=== PATIENT | female | born 1935 | race Two or more races ===

== ENCOUNTER 2020-06-20 12:35 | Inpatient (IN) | payer OTHER ==
[~2020-06-20] VITALS: Ht 162.6 cm; Wt 53.4 kg
[2020-06-20] MEDS ORDERED: MORPHINE SULFATE 4 MG/ML SYR/VIAL IV ONE (13:45)
[2020-06-20] MEDS ORDERED: ONDANSETRON HCL 4 MG/2 ML VIAL IV ONE (13:45)
[2020-06-20 14:12] LABS: Basophils # (auto) 0 10 ^3/uL (0-0.2); Basophils % (auto) 0.1 % (0.0-2.0); Eosinophils # (auto) 0.1 10 ^3/uL (0-0.8); Eosinophils % (auto) 0.4 % (0.0-7.0); Hematocrit 45.5 % (36.0-46.0); Hemoglobin 14.6 g/dL (12.2-16.2); Lymphocytes # (auto) 0.9 10 ^3/uL (0.4-5.4); Mean Corpuscular Hemoglobin 31.4 pg (28.0-32.0); Mean Corpuscular Hgb Conc. 32.1 g/dL (32.0-36.0); Mean Corpuscular Volume 97.6 fL (80.0-100.0); Monocytes # (auto) 0.7 10 ^3/uL (0-1.3); Monocytes % (auto) 5.8 % (0.0-12.0); Neutrophils # (auto) 10.6 10 ^3/uL (1.6-8.6); Neutrophils % (auto) 86.7 % (37.0-80.0); Platelet Count (auto) 234 10^3/uL (140-450); Red Blood Cells 4.66 10^6/uL (4.0-5.20); Red Cell Distribution Width 13.8 % (11.8-14.3); White Blood Cell 12.2 10^3/uL (4.4-10.8)
[2020-06-20] MEDS ORDERED: MORPHINE SULF INJ 2 MG/ML SYRINGE 1ML IV PRN ×2 (15:45)
[2020-06-20] MEDS ORDERED: ALUM & MAG HYDROX-SIMETH LIQ(MAALOX) 30 ML PO PRN (15:45)
[2020-06-20] MEDS ORDERED: NITROGLYCERIN 0.4 MG SL TAB SL PRN (15:45)
[2020-06-20] MEDS ORDERED: LORazepam 0.5 MG TAB PO PRN (15:45)
[2020-06-20] MEDS ORDERED: ONDANSETRON HCL 4 MG/2 ML VIAL IV PRN (15:45)
[2020-06-20] MEDS ORDERED: MET25T PO (16:14)
[2020-06-20] MEDS ORDERED: LEVO50TA7 PO (16:14)
[2020-06-20] MEDS ORDERED: LATA0.0019 EACHEYE (16:14)
[2020-06-20] MEDS ORDERED: FLU220IH INH (16:14)
[2020-06-20] MEDS ORDERED: SIMV-8 PO (16:14)
[2020-06-20] MEDS: SODIUM CHLORIDE 0.9% 1,000 ML IV SCH (16:16)
[2020-06-20 17:22] LABS: Urine Bacteria NONE SEEN /hpf (None Seen); Urine Blood Negative /uL (Negative); Urine Specific Gravity 1.015 (1.001-1.035); Urine WBC 5 /hpf (0 - 5)
[2020-06-20 18:10] VITALS: BP_SYST 138; BP_DIAS 50; BP_DIAS 80
[2020-06-20 20:00] VITALS: BP 118/66
[2020-06-20 20:14] LABS: Alanine Aminotransferase 33 U/L (13-56); Albumin 3.9 g/dL (3.4-5.0); Alkaline Phosphatase 78 U/L (45-117); Anion Gap 10 (5-15); Aspartate Aminotransferase 30 U/L (15-37); BUN/Creatinine Ratio 29.1; Bilirubin, Total 0.6 mg/dL (0.2-1.0); Blood Urea Nitrogen 23 mg/dL (7-18); Calcium 8.9 mg/dL (8.5-10.1); Carbon Dioxide 24 mmol/L (21-32); Chloride 109 mmol/L (98-107); GFR African American 89 mL/min; GFR Non-African American 74 mL/min; Glucose 111 mg/dL (74-106); Potassium 3.9 mmol/L (3.5-5.1); Sodium 143 mmol/L (136-145); Total Protein 7.5 g/dL (6.4-8.2)
[2020-06-20 22:00] VITALS: BP 118/66
[2020-06-20 22:09] LABS: Alcohol, Urine < 3.0 mg/dL (0-10); Amphetamine Screen, Urine NEGATIVE (NEGATIVE); Barbiturate Scree,Urine NEGATIVE (NEGATIVE); Benzodiazephine Screen, Urine NEGATIVE (NEGATIVE); Cannabinoid Screen, Urine NEGATIVE (NEGATIVE); Cocaine Screen, Urine NEGATIVE (NEGATIVE); Opiate Scree,Urine POSITIVE (NEGATIVE); Phencyclidine Screen, Urine NEGATIVE (NEGATIVE)
[2020-06-20 22:25] VITALS: BP 138/80
[2020-06-20] MEDS: LATANOPROST 0.005 % OPTH(EYE) SOL 2.5ML EACHEYE SCH (22:34)
[2020-06-20] MEDS: ATORVASTATIN 20 MG TAB PO SCH (22:35)
[2020-06-20] MEDS: METOPROLOL TARTRATE 25 MG TAB PO SCH (22:36)
[2020-06-20] MEDS: HYDROcodone-ACET 5/325MG TAB PO PRN (22:37)
[2020-06-20 23:22] LABS: INR 1.02 (0.9-1.15)
[2020-06-21] VITALS (12 sets, daily range): BP systolic 90–175; BP diastolic 45–86
[2020-06-21] MEDS: LEVOTHYROXINE SODIUM 50 MCG TAB PO SCH (06:19)
[2020-06-21] MEDS: BUDESONIDE (INHALATION) 0.5 MG/2 ML NEB NEB SCH ×2 (07:30→22:32)
[2020-06-21 08:24] LABS: Cholesterol 164 mg/dL (< 200)
[2020-06-21 08:28] LABS: HDL Cholesterol 81 mg/dL (40-59); LDL Cholesterol 86 mg/dL (< 100); Triglycerides 70 mg/dL (< 150)
[2020-06-21] MEDS: METOPROLOL TARTRATE 25 MG TAB PO SCH ×2 (10:00→22:00)
[2020-06-21] MEDS: SODIUM CHLORIDE 0.9% 1,000 ML IV SCH (10:30)
[2020-06-21] MEDS ORDERED: TETRACAINE 1% INJ 2 ML VIAL IJ ONE (11:33)
[2020-06-21] MEDS ORDERED: MIDAZOLAM HCL 1MG/1ML-2 ML VIAL ONE (11:38)
[2020-06-21] MEDS ORDERED: MORPHINE SULF(PF) 0.5MG/ML 10ML VIAL ONE (11:38)
[2020-06-21] MEDS ORDERED: PROPOFOL 10 MG/ML 20 ML IV ONE (11:38)
[2020-06-21] MEDS ORDERED: GLYCOPYRROLATE 0.2 MG/ML 1ML VIAL ONE (11:38)
[2020-06-21] MEDS ORDERED: ONDANSETRON HCL 4 MG/2 ML VIAL ONE (11:38)
[2020-06-21] MEDS ORDERED: ePHEDrine SULFATE 50 MG/ML AMP ONE (11:38)
[2020-06-21] MEDS ORDERED: fentaNYL CITRATE 100 MCG/2 ML VL ONE (11:38)
[2020-06-21] MEDS ORDERED: CLINDAMYCIN 600MG IV 50 ML IV ONE (11:49)
[2020-06-21] MEDS ORDERED: LACTATED RINGER'S 1,000 ML IV SCH (12:52)
[2020-06-21] MEDS ORDERED: ePHEDrine SULFATE 50 MG/ML AMP IV PRN (13:15)
[2020-06-21] MEDS ORDERED: ONDANSETRON HCL 4 MG/2 ML VIAL IV PRN ×2 (13:15→18:00)
[2020-06-21] MEDS ORDERED: NALBUPHINE HCL 10 MG/1ml INJECTION SUBCUT ONE (13:15)
[2020-06-21] MEDS ORDERED: ACCU-CHEK COMFORT CURVE STRIP VI ONE (13:15)
[2020-06-21] MEDS ORDERED: DexAMETHasone SOD PHOS 10MG/1ML VIAL INJ IV PRN (13:15)
[2020-06-21] MEDS ORDERED: NALOXONE HCL 0.4 MG/ML VIAL IV PRN (13:15)
[2020-06-21] MEDS: SODIUM CHLOR 0.9% PF (SALINE LOCK) 10ML VIAL/SYR IV SCH ×2 (18:22→22:09)
[2020-06-21] MEDS: CLINDAMYCIN 600MG IV 50 ML IV SCH ×2 (18:22→22:09)
[2020-06-21] MEDS: LATANOPROST 0.005 % OPTH(EYE) SOL 2.5ML EACHEYE SCH (22:09)
[2020-06-21] MEDS: ATORVASTATIN 20 MG TAB PO SCH (22:10)
[2020-06-22] VITALS (19 sets, daily range): BP systolic 90–121; BP diastolic 42–66
[2020-06-22 06:29] LABS: Basophils # (auto) 0 10 ^3/uL (0-0.2); Basophils % (auto) 0.2 % (0.0-2.0); Eosinophils # (auto) 0 10 ^3/uL (0-0.8); Eosinophils % (auto) 0.3 % (0.0-7.0); Hematocrit 36.7 % (36.0-46.0); Hemoglobin 12.2 g/dL (12.2-16.2); Lymphocytes # (auto) 0.7 10 ^3/uL (0.4-5.4); Mean Corpuscular Hemoglobin 32.3 pg (28.0-32.0); Mean Corpuscular Hgb Conc. 33.2 g/dL (32.0-36.0); Mean Corpuscular Volume 97.4 fL (80.0-100.0); Monocytes # (auto) 0.8 10 ^3/uL (0-1.3); Monocytes % (auto) 8.2 % (0.0-12.0); Neutrophils # (auto) 8.7 10 ^3/uL (1.6-8.6); Neutrophils % (auto) 84.3 % (37.0-80.0); Platelet Count (auto) 190 10^3/uL (140-450); Red Blood Cells 3.77 10^6/uL (4.0-5.20); Red Cell Distribution Width 13.5 % (11.8-14.3); White Blood Cell 10.3 10^3/uL (4.4-10.8)
[2020-06-22 06:43] LABS: Potassium 3.8 mmol/L (3.5-5.1)
[2020-06-22] MEDS: CLINDAMYCIN 600MG IV 50 ML IV SCH (06:47)
[2020-06-22] MEDS: SODIUM CHLOR 0.9% PF (SALINE LOCK) 10ML VIAL/SYR IV SCH ×3 (06:47→21:46)
[2020-06-22] MEDS: LEVOTHYROXINE SODIUM 50 MCG TAB PO SCH (06:47)
[2020-06-22] MEDS: SODIUM CHLORIDE 0.9% 1,000 ML IV SCH ×2 (06:58→19:53)
[2020-06-22] MEDS: ACETAMINOPHEN 325 MG TAB PO PRN (07:01)
[2020-06-22] MEDS: BUDESONIDE (INHALATION) 0.5 MG/2 ML NEB NEB SCH ×2 (07:21→22:28)
[2020-06-22] MEDS: METOPROLOL TARTRATE 25 MG TAB PO SCH ×2 (10:00→21:46)
[2020-06-22] MEDS: DOCUSATE SOD 100 MG CAP PO PRN (10:06)
[2020-06-22] MEDS: ENOXAPARIN SOD 40 MG/0.4 ML SYRINGE SC SCH (10:07)
[2020-06-22] MEDS: HYDROcodone-ACET 5/325MG TAB PO PRN (17:44)
[2020-06-22] MEDS: LATANOPROST 0.005 % OPTH(EYE) SOL 2.5ML EACHEYE SCH (21:46)
[2020-06-22] MEDS: ATORVASTATIN 20 MG TAB PO SCH (21:46)
[2020-06-23] VITALS (7 sets, daily range): BP systolic 101–140; BP diastolic 54–77
[2020-06-23] MEDS: SODIUM CHLOR 0.9% PF (SALINE LOCK) 10ML VIAL/SYR IV SCH ×3 (06:09→21:33)
[2020-06-23 06:11] LABS: Hematocrit 36.9 % (36.0-46.0); Hemoglobin 12.3 g/dL (12.2-16.2)
[2020-06-23] MEDS: LEVOTHYROXINE SODIUM 50 MCG TAB PO SCH (06:21)
[2020-06-23] MEDS: BUDESONIDE (INHALATION) 0.5 MG/2 ML NEB NEB SCH ×2 (07:42→22:20)
[2020-06-23] MEDS: ENOXAPARIN SOD 40 MG/0.4 ML SYRINGE SC SCH (09:03)
[2020-06-23] MEDS: METOPROLOL TARTRATE 25 MG TAB PO SCH ×2 (09:04→21:34)
[2020-06-23] MEDS: SODIUM CHLORIDE 0.9% 1,000 ML IV SCH (09:09)
[2020-06-23] MEDS: HYDROcodone-ACET 5/325MG TAB PO PRN (09:27)
[2020-06-23] MEDS: ACETAMINOPHEN 325 MG TAB PO PRN (20:35)
[2020-06-23] MEDS: LATANOPROST 0.005 % OPTH(EYE) SOL 2.5ML EACHEYE SCH (21:33)
[2020-06-23] MEDS: ATORVASTATIN 20 MG TAB PO SCH (21:34)
[2020-06-24] MEDS: SODIUM CHLORIDE 0.9% 1,000 ML IV SCH (02:58)
[2020-06-24 05:30] VITALS: BP 144/86
[2020-06-24] MEDS: ACETAMINOPHEN 325 MG TAB PO PRN (05:31)
[2020-06-24] MEDS: SODIUM CHLOR 0.9% PF (SALINE LOCK) 10ML VIAL/SYR IV SCH (06:00)
[2020-06-24] MEDS: BUDESONIDE (INHALATION) 0.5 MG/2 ML NEB NEB SCH (06:08)
[2020-06-24] MEDS: LEVOTHYROXINE SODIUM 50 MCG TAB PO SCH (06:27)
[2020-06-24] MEDS: DOCUSATE SOD 100 MG CAP PO PRN (06:28)
[2020-06-24] MEDS: METOPROLOL TARTRATE 25 MG TAB PO SCH (09:33)
[2020-06-24] MEDS: ENOXAPARIN SOD 40 MG/0.4 ML SYRINGE SC SCH (09:34)
[2020-06-24 13:17] VITALS: BP 119/63
== END 2020-06-24 15:35 | disposition home health service (06) | DRG 481 ==
LOC: EDBD 12:35 → EDUNIT# 12:35 → ER 12:35 → TELE 12:36 → TELE-WESTW 17:43
PROVIDERS: ADMIT Hospitalist; ATTEND Internal Medicine
PROC: 0QS734Z Reposition Left Upper Femur with Internal Fixation Device, Percutaneous Approach (ICD-10-PCS; principal; 2020-06-21 11:57)
DX: S72.012A Unspecified intracapsular fracture of left femur, initial encounter for closed fracture (principal); R64 Cachexia; I10 Essential (primary) hypertension; R73.03 Prediabetes; Z20.828 Contact with and (suspected) exposure to other viral communicable diseases; E78.5 Hyperlipidemia, unspecified; W18.39XA Other fall on same level, initial encounter; J45.909 Unspecified asthma, uncomplicated; H40.9 Unspecified glaucoma; Z90.710 Acquired absence of both cervix and uterus; Z79.51 Long term (current) use of inhaled steroids; Z80.9 Family history of malignant neoplasm, unspecified; Z87.01 Personal history of pneumonia (recurrent); Z91.81 History of falling; Z88.1 Allergy status to other antibiotic agents; Y93.89 Activity, other specified; Y92.098 Other place in other non-institutional residence as the place of occurrence of the external cause; Y99.8 Other external cause status; Z68.20 Body mass index [BMI] 20.0-20.9, adult
CPT/HCPCS: 36415; 71045; 73502; 73700; 80048; 80053; 80061; 80307; 81001; 82962; 83036; 84439; 84443; 84484; 85014; 85018; 85025; 85610; 86850; 86900; 86901; 87040; 87086; 93005; 94640; 96365; 96375; A4565; G0378; J2250; J2405; J2704; J3490

== ENCOUNTER 2020-06-25 21:10 | Emergency (ER) | payer OTHER ==
[~2020-06-25] VITALS: Ht 162.6 cm; Wt 45.4 kg
[~2020-06-25 21:10] MED LIST: FLU220IH INH; LATA0.0019 EACHEYE; LEVO50TA7 PO; MET25T PO; SIMV-8 PO
[2020-06-25] MEDS ORDERED: METOPROLOL TARTRATE 1MG/1ML-5ML VIAL IV ONE (22:15)
[2020-06-25 22:48] LABS: Basophils # (auto) 0 10 ^3/uL (0-0.2); Basophils % (auto) 0.4 % (0.0-2.0); Eosinophils # (auto) 0.3 10 ^3/uL (0-0.8); Eosinophils % (auto) 3.1 % (0.0-7.0); Hematocrit 37.2 % (36.0-46.0); Hemoglobin 12.7 g/dL (12.2-16.2); Lymphocytes # (auto) 1.3 10 ^3/uL (0.4-5.4); Mean Corpuscular Hemoglobin 32.6 pg (28.0-32.0); Mean Corpuscular Volume 95.8 fL (80.0-100.0); Monocytes # (auto) 0.8 10 ^3/uL (0-1.3); Monocytes % (auto) 9.3 % (0.0-12.0); Neutrophils # (auto) 6.1 10 ^3/uL (1.6-8.6); Neutrophils % (auto) 72.2 % (37.0-80.0); Platelet Count (auto) 354 10^3/uL (140-450); Red Blood Cells 3.89 10^6/uL (4.0-5.20); Red Cell Distribution Width 13.6 % (11.8-14.3); White Blood Cell 8.5 10^3/uL (4.4-10.8)
[2020-06-25 23:03] LABS: Albumin 2.9 g/dL (3.4-5.0); Anion Gap 4 (5-15); Blood Urea Nitrogen 14 mg/dL (7-18); Calcium 8.7 mg/dL (8.5-10.1); Carbon Dioxide 29 mmol/L (21-32); Chloride 104 mmol/L (98-107); Glucose 138 mg/dL (74-106); Magnesium 2.4 mg/dL (1.6-2.6); Sodium 137 mmol/L (136-145)
[2020-06-25 23:07] LABS: INR 1.01 (0.9-1.15); Partial Thromboplastin Time 31.1 sec (23.0-31.2)
[2020-06-25 23:10] LABS: Alanine Aminotransferase 27 U/L (13-56); Alkaline Phosphatase 75 U/L (45-117); Aspartate Aminotransferase 25 U/L (15-37); BUN/Creatinine Ratio 20.9; Bilirubin, Total 0.6 mg/dL (0.2-1.0); GFR African American 108 mL/min; GFR Non-African American 89 mL/min; Total Protein 6.8 g/dL (6.4-8.2)
[2020-06-25 23:15] LABS: Urine Bacteria FEW /hpf (None Seen); Urine Blood TRACE /uL (Negative); Urine Specific Gravity 1.005 (1.001-1.035); Urine WBC 67 /hpf (0 - 5)
[2020-06-25] MEDS ORDERED: IOHEXOL 350 MG/ML 100ML IJ ONE (23:35)
[2020-06-26] MEDS ORDERED: cefTRIAXone 1GM/50ML D5W 50 ML IV ONE (00:15)
[2020-06-26 01:06] VITALS: BP 141/85
[2020-06-27] MEDS ORDERED: MULT-1058 PO (03:52)
[2020-06-27] MEDS ORDERED: LATA0.0020 EACHEYE (03:52)
[2020-06-27] MEDS ORDERED: CHOL1TAB22 PO (03:52)
[2020-06-27] MEDS ORDERED: METO25TA5 PO (03:52)
[2020-06-27] MEDS ORDERED: PROB1CHW2 PO (03:52)
[2020-06-27] MEDS ORDERED: APIX2.5T PO (03:52)
== END 2020-06-26 02:29 | disposition home or self-care (01) ==
LOC: EDBD 21:10 → ER 21:13
DX: G89.18 Other acute postprocedural pain (principal); N39.0 Urinary tract infection, site not specified; E11.9 Type 2 diabetes mellitus without complications; I10 Essential (primary) hypertension; E78.5 Hyperlipidemia, unspecified; Z79.899 Other long term (current) drug therapy; Z88.1 Allergy status to other antibiotic agents
CPT/HCPCS: 36415; 71045; 71275; 73700; 80053; 81001; 83735; 83880; 84443; 84484; 85025; 85379; 85610; 85730; 93005; 96365; 96375; 99285; J0696; Q9967

== ENCOUNTER 2020-06-26 16:20 | Inpatient (IN) | payer OTHER ==
[~2020-06-26] VITALS: Ht 170.2 cm; Wt 44.9 kg
[2020-06-26] MEDS ORDERED: ALUM & MAG HYDROX-SIMETH LIQ(MAALOX) 30 ML PO PRN (17:30)
[2020-06-26] MEDS ORDERED: ACETAMINOPHEN 325 MG TAB PO PRN (17:30)
[2020-06-26] MEDS ORDERED: ONDANSETRON HCL 4 MG/2 ML VIAL IV PRN (17:30)
[2020-06-26] MEDS ORDERED: NITROGLYCERIN 0.4 MG SL TAB SL PRN (17:30)
[2020-06-26] MEDS ORDERED: DOCUSATE SOD 100 MG CAP PO PRN (17:30)
[2020-06-26] MEDS ORDERED: MORPHINE SULF INJ 2 MG/ML SYRINGE 1ML IV PRN (17:30)
[2020-06-26 17:40] LABS: Basophils # (auto) 0 10 ^3/uL (0-0.2); Basophils % (auto) 0.5 % (0.0-2.0); Eosinophils # (auto) 0.2 10 ^3/uL (0-0.8); Eosinophils % (auto) 2.4 % (0.0-7.0); Hematocrit 39.3 % (36.0-46.0); Hemoglobin 13.2 g/dL (12.2-16.2); Lymphocytes # (auto) 1.2 10 ^3/uL (0.4-5.4); Lymphocytes % (auto) 13.7 % (10.0-50.0); Mean Corpuscular Hemoglobin 32.5 pg (28.0-32.0); Mean Corpuscular Hgb Conc. 33.7 g/dL (32.0-36.0); Mean Corpuscular Volume 96.4 fL (80.0-100.0); Monocytes # (auto) 0.8 10 ^3/uL (0-1.3); Monocytes % (auto) 8.8 % (0.0-12.0); Neutrophils # (auto) 6.5 10 ^3/uL (1.6-8.6); Neutrophils % (auto) 74.6 % (37.0-80.0); Nucleated Red Blood Cells % 0.1 %; Platelet Count (auto) 400 10^3/uL (140-450); Red Blood Cells 4.08 10^6/uL (4.0-5.20); Red Cell Distribution Width 13.6 % (11.8-14.3); White Blood Cell 8.7 10^3/uL (4.4-10.8)
[2020-06-26 17:47] LABS: Albumin 3.2 g/dL (3.4-5.0); Calcium 9.2 mg/dL (8.5-10.1)
[2020-06-26 17:49] LABS: BUN/Creatinine Ratio 20.8; Bilirubin, Total 0.7 mg/dL (0.2-1.0); Total Protein 7.3 g/dL (6.4-8.2)
[2020-06-26 18:52] VITALS: BP 120/63
[2020-06-26 22:00] VITALS: BP 156/62
[2020-06-26] MEDS ORDERED: METOPROLOL TARTRATE 25 MG TAB PO SCH (22:00)
[2020-06-26] MEDS ORDERED: LATANOPROST 0.005 % OPTH(EYE) SOL 2.5ML EACHEYE SCH (22:00)
[2020-06-26] MEDS: HYDROcodone-ACET 5/325MG TAB PO PRN (22:25)
[2020-06-26] MEDS: SODIUM CHLOR 0.9% PF (SALINE LOCK) 10ML VIAL/SYR IV SCH (22:27)
[2020-06-27] MEDS ORDERED: PROB1CHW2 PO (03:52)
[2020-06-27] MEDS ORDERED: APIX2.5T PO (03:52)
[2020-06-27] MEDS ORDERED: LATA0.0020 EACHEYE (03:52)
[2020-06-27] MEDS ORDERED: METO25TA5 PO (03:52)
[2020-06-27] MEDS ORDERED: CHOL1TAB22 PO (03:52)
[2020-06-27] MEDS ORDERED: MULT-1058 PO (03:52)
[2020-06-27 05:00] VITALS: BP 152/69
[2020-06-27 06:02] LABS: Urine Bacteria FEW /hpf (None Seen); Urine Blood Negative /uL (Negative); Urine Specific Gravity 1.004 (1.001-1.035); Urine WBC 7 /hpf (0 - 5)
[2020-06-27] MEDS: SODIUM CHLOR 0.9% PF (SALINE LOCK) 10ML VIAL/SYR IV SCH ×2 (06:23→13:35)
[2020-06-27] MEDS ORDERED: LEVOTHYROXINE SODIUM 50 MCG TAB PO SCH (07:00)
[2020-06-27 09:00] VITALS: BP 144/83
[2020-06-27] MEDS ORDERED: METOPROLOL TARTRATE 25 MG TAB PO SCH (10:00)
[2020-06-27] MEDS ORDERED: ENOXAPARIN SOD 40 MG/0.4 ML SYRINGE SC SCH (10:00)
[2020-06-27] MEDS: HYDROcodone-ACET 5/325MG TAB PO PRN (10:41)
[2020-06-27 12:54] VITALS: BP 121/73
[2020-06-27 17:00] VITALS: BP 119/55
== END 2020-06-27 18:28 | DRG 536 ==
LOC: ER 16:20 → EDBD 16:20 → CENTRAL 16:21
PROVIDERS: ADMIT Nurse Practitioner Family; ATTEND Internal Medicine
DX: S72.002A Fracture of unspecified part of neck of left femur, initial encounter for closed fracture (principal); D89.9 Disorder involving the immune mechanism, unspecified; E03.9 Hypothyroidism, unspecified; E11.9 Type 2 diabetes mellitus without complications; G89.18 Other acute postprocedural pain; E78.5 Hyperlipidemia, unspecified; G89.4 Chronic pain syndrome; Z20.828 Contact with and (suspected) exposure to other viral communicable diseases; I10 Essential (primary) hypertension; W18.39XA Other fall on same level, initial encounter; Z80.9 Family history of malignant neoplasm, unspecified; Z90.710 Acquired absence of both cervix and uterus; Z88.1 Allergy status to other antibiotic agents; Z79.899 Other long term (current) drug therapy; Y93.89 Activity, other specified; Y92.89 Other specified places as the place of occurrence of the external cause; Y99.8 Other external cause status
CPT/HCPCS: 36415; 72170; 80053; 81001; 83036; 84443; 85025; 87081; 87426; G0378